=== PATIENT | female | born 1985 | race Caucasian/White ===

== ENCOUNTER → 2017-01-31 | Outpatient (REF) | payer OTHER ==
[~2017-01-31] MED LIST: ARTHROTEC; ATIV1TAB2; DEPA500T; FLEXERIL; IBUP800T; TRAM50TA2; VICO5TAB
[2017-01-31 14:01] LABS: BASO % 0.3 % (0.0-1.0); EOS # 0.2 K/mm3 (0.0-0.50); EOS % 1.7 % (0.0-3.0); LARGE UNSTAINED CELL # 0.1 K/mm3 (0.0-0.4); LARGE UNSTAINED CELL % 1.2 % (0.0-4.0); LYMPH % 22.3 % (24.0-44.0); MEAN CORPUSCULAR HEMOGLOBIN 32.3 pg (27.0-33.0); MEAN CORPUSCULAR HGB CONC 32.6 g/dl (32.0-36.5); MEAN CORPUSCULAR VOLUME 99.1 fl (80.0-96.0); MONO # 0.5 K/mm3 (0.0-0.8); MONO % 5.7 % (0.0-5.0); NEUTROPHILS # 6.2 K/mm3 (1.8-7.7); NEUTROPHILS % 68.7 % (36.0-66.0); PLATELET COUNT, AUTOMATED 243 k/mm3 (150-450); RED CELL DISTRIBUTION WIDTH 12.4 % (11.5-14.5)
[2017-01-31 14:05] LABS: ALBUMIN 4.1 GM/DL (3.2-5.2); ALBUMIN/GLOBULIN RATIO 1.64 (1.00-1.93); ALKALINE PHOSPHATASE 72 U/L (45-117); ALT/SGPT 35 U/L (12-78); AMYLASE 28 U/L (25-115); ANION GAP 7 MEQ/L (8-16); AST/SGOT 29 U/L (15-37); BILIRUBIN,TOTAL 0.3 MG/DL (0.2-1.0); BLOOD UREA NITROGEN 14 MG/DL (7-18); CALCIUM LEVEL 8.7 MG/DL (8.5-10.1); CARBON DIOXIDE LEVEL 29 MEQ/L (21-32); CHLORIDE LEVEL 104 MEQ/L (98-107); CREATININE FOR GFR 0.79 MG/DL (0.55-1.02); GLOMERULAR FILTRATION RATE > 60.0 (>60); GLUCOSE, FASTING 107 MG/DL (70-105); POTASSIUM SERUM 4.7 MEQ/L (3.5-5.1); SODIUM LEVEL 140 MEQ/L (136-145); TOTAL PROTEIN 6.6 GM/DL (6.4-8.2)
== END ==
LOC: M LAB REF 12:02
PROVIDERS: ATTEND Physician Assistant Medical
DX: M54.5 Low back pain (principal); R10.9 Unspecified abdominal pain

== ENCOUNTER → 2017-02-01 | Outpatient (CLI) | payer OTHER ==
[~2017-02-01] MED LIST changes: +GASTROGRAFIN SOLUTION 30ML (Q9963) As Ordered ONE; +ISOVUE-370 76% 100ML VIAL (Q9967) As Ordered ONE
--- NOTE | 2017-02-01 12:55 | REP ---
Clinical: Right lower quadrant pain. Technique: Axial contrast enhanced images from the lung bases to the pubic symphysis using oral and 100 ml Isovue 370 intravenous contrast material with coronal and sagittal re-formations. Findings: Lung bases clear. Visualized heart and pericardium normal. Liver, spleen, pancreas, bilateral adrenal glands and kidneys are normal. The patient is status post cholecystectomy. The enteric system is without obstruction or acute inflammatory process. A normal terminal ileum and appendix are identified in the right lower quadrant without appendicitis. Pelvis demonstrates normal sigmoid colon, bladder, and age-appropriate uterus/adnexa. No pelvic fluid or ascites. No adenopathy. No mass lesion. Vasculature is normal. Musculoskeletal structures are intact. Impression: Normal contrast enhanced CT of the abdomen and pelvis. Signed by Lawrence Griffith MD 02/01/2017 12:47 P
== END ==
LOC: M RAD 10:44
PROVIDERS: ATTEND Physician Assistant Medical
DX: M54.5 Low back pain (principal); R10.9 Unspecified abdominal pain
CPT/HCPCS: 74177; 87086; Q9963; Q9967

== ENCOUNTER → 2017-06-05 | Outpatient (REF) | payer OTHER ==
[~2017-06-05] MED LIST changes: -GASTROGRAFIN SOLUTION 30ML (Q9963) As Ordered ONE; -ISOVUE-370 76% 100ML VIAL (Q9967) As Ordered ONE
[2017-06-05 16:53] LABS: BASO % 0.2 % (0.0-1.0); EOS # 0.1 K/mm3 (0.0-0.50); EOS % 0.8 % (0.0-3.0); LARGE UNSTAINED CELL # 0.1 K/mm3 (0.0-0.4); LARGE UNSTAINED CELL % 0.9 % (0.0-4.0); LYMPH # 2.7 K/mm3 (1.5-4.5); LYMPH % 19.9 % (24.0-44.0); MEAN CORPUSCULAR HEMOGLOBIN 32.5 pg (27.0-33.0); MEAN CORPUSCULAR VOLUME 98.5 fl (80.0-96.0); MONO # 0.5 K/mm3 (0.0-0.8); MONO % 3.6 % (0.0-5.0); NEUTROPHILS # 9.8 K/mm3 (1.8-7.7); NEUTROPHILS % 74.5 % (36.0-66.0); PLATELET COUNT, AUTOMATED 236 k/mm3 (150-450); RED CELL DISTRIBUTION WIDTH 12.3 % (11.5-14.5); WHITE BLOOD COUNT 13.1 K/mm3 (4.0-10.0)
[2017-06-05 18:18] LABS: ERYTHROCYTE SEDIMENTATION RATE 4 mm/hr (0-20)
== END ==
LOC: M LABDRAW1 15:00
PROVIDERS: ATTEND Physician Assistant
DX: S53.402A Unspecified sprain of left elbow, initial encounter (principal); X58.XXXA Exposure to other specified factors, initial encounter; Y93.9 Activity, unspecified; Y92.9 Unspecified place or not applicable; Y99.8 Other external cause status

== ENCOUNTER → 2017-06-21 | Outpatient (REF) | payer OTHER ==
[2017-06-21 15:55] LABS: BASO % 0.3 % (0.0-1.0); EOS # 0.2 K/mm3 (0.0-0.50); EOS % 1.4 % (0.0-3.0); LARGE UNSTAINED CELL # 0.1 K/mm3 (0.0-0.4); LYMPH # 2.4 K/mm3 (1.5-4.5); LYMPH % 22.5 % (24.0-44.0); MEAN CORPUSCULAR HEMOGLOBIN 32.8 pg (27.0-33.0); MEAN CORPUSCULAR HGB CONC 33.9 g/dl (32.0-36.5); MEAN CORPUSCULAR VOLUME 96.7 fl (80.0-96.0); MONO # 0.4 K/mm3 (0.0-0.8); MONO % 3.9 % (0.0-5.0); NEUTROPHILS # 7.4 K/mm3 (1.8-7.7); NEUTROPHILS % 70.9 % (36.0-66.0); PLATELET COUNT, AUTOMATED 232 k/mm3 (150-450); RED CELL DISTRIBUTION WIDTH 12.3 % (11.5-14.5); WHITE BLOOD COUNT 10.4 K/mm3 (4.0-10.0)
== END ==
LOC: M LABDRAW1 15:12
PROVIDERS: ATTEND Physician Assistant
DX: S53.402A Unspecified sprain of left elbow, initial encounter (principal); X58.XXXA Exposure to other specified factors, initial encounter; Y92.89 Other specified places as the place of occurrence of the external cause; Y93.89 Activity, other specified; Y99.8 Other external cause status

== ENCOUNTER → 2017-08-03 | Outpatient (REF) | payer OTHER | LOC: M SFHCWAGY 14:57 | PROVIDERS: ATTEND Nurse Practitioner Women's Health | DX: Z01.419 Encounter for gynecological examination (general) (routine) without abnormal findings (principal); R10.2 Pelvic and perineal pain; Z11.3 Encounter for screening for infections with a predominantly sexual mode of transmission; N94.10 Unspecified dyspareunia; Z11.51 Encounter for screening for human papillomavirus (HPV) ==

== ENCOUNTER → 2017-10-25 | Outpatient (REF) | payer OTHER ==
[2017-10-25 12:33] LABS: BASO % 0.3 % (0.0-1.0); EOS # 0.2 10^3/uL (0.0-0.50); IMMATURE GRANULOCYTE % 0.4 % (0-0); LYMPH # 2.6 10^3/uL (1.5-4.5); LYMPH % 23.1 % (24.0-44.0); MEAN CORPUSCULAR HEMOGLOBIN 31.8 pg (27.0-33.0); MEAN CORPUSCULAR HGB CONC 33.1 g/dl (32.0-36.5); MONO # 0.7 10^3/uL (0.0-0.8); MONO % 6.3 % (0.0-5.0); NEUTROPHILS # 7.7 10^3/uL (1.8-7.7); NEUTROPHILS % 67.9 % (36.0-66.0); PLATELET COUNT, AUTOMATED 272 10^3/uL (150-450); RED CELL DISTRIBUTION WIDTH 12.5 % (11.5-14.5); WHITE BLOOD COUNT 11.3 10^3/uL (4.0-10.0)
[2017-10-25 12:55] LABS: ANION GAP 7 MEQ/L (8-16); BLOOD UREA NITROGEN 10 MG/DL (7-18); CALCIUM LEVEL 8.7 MG/DL (8.5-10.1); CARBON DIOXIDE LEVEL 29 MEQ/L (21-32); CHLORIDE LEVEL 107 MEQ/L (98-107); CREATININE FOR GFR 0.75 MG/DL (0.55-1.02); GLOMERULAR FILTRATION RATE > 60.0 (>60); GLUCOSE, FASTING 98 MG/DL (70-105); POTASSIUM SERUM 4.7 MEQ/L (3.5-5.1); SODIUM LEVEL 143 MEQ/L (136-145)
== END ==
LOC: M SFHCPLAZ 09:43
PROVIDERS: ATTEND Family Medicine
DX: Z87.898 Personal history of other specified conditions (principal); Z13.29 Encounter for screening for other suspected endocrine disorder; R53.83 Other fatigue

== ENCOUNTER → 2017-12-13 | Outpatient (REF) | payer OTHER | LOC: M SFHCADAM 09:50 | DX: G89.29 Other chronic pain (principal); R94.6 Abnormal results of thyroid function studies; Z86.718 Personal history of other venous thrombosis and embolism ==

== ENCOUNTER → 2017-12-14 | Outpatient (REF) | payer OTHER ==
[2017-12-14 13:23] LABS: HEMATOCRIT 45.1 % (36.0-47.0); HEMOGLOBIN 14.8 g/dl (12.0-16.0); MEAN CORPUSCULAR HEMOGLOBIN 31.6 pg (27.0-33.0); MEAN CORPUSCULAR HGB CONC 32.8 g/dl (32.0-36.5); MEAN CORPUSCULAR VOLUME 96.4 fl (80.0-96.0); PLATELET COUNT, AUTOMATED 293 10^3/uL (150-450); RED BLOOD COUNT 4.68 10^6/uL (4.00-5.40); RED CELL DISTRIBUTION WIDTH 12.3 % (11.5-14.5); WHITE BLOOD COUNT 13.1 10^3/uL (4.0-10.0)
[2017-12-14 13:50] LABS: ERYTHROCYTE SEDIMENTATION RATE 4 mm/hr (0-20)
[2017-12-14 13:52] LABS: ALBUMIN 4.1 GM/DL (3.2-5.2); ALBUMIN/GLOBULIN RATIO 1.37 (1.00-1.93); ALKALINE PHOSPHATASE 70 U/L (45-117); ALT/SGPT 17 U/L (12-78); ANION GAP 8 MEQ/L (8-16); AST/SGOT 15 U/L (7-37); BILIRUBIN,TOTAL 0.3 MG/DL (0.2-1.0); BLOOD UREA NITROGEN 9 MG/DL (7-18); C REACTIVE PROTEIN QUANTITATIV < 0.30 MG/DL (0.00-0.30); CALCIUM LEVEL 9.1 MG/DL (8.5-10.1); CARBON DIOXIDE LEVEL 28 MEQ/L (21-32); CHLORIDE LEVEL 105 MEQ/L (98-107); CHOLESTEROL LEVEL 203 MG/DL (<200); CREATININE FOR GFR 0.63 MG/DL (0.55-1.30); FREE T4 1.27 NG/DL (0.76-1.46); GLOMERULAR FILTRATION RATE > 60.0 (>60); GLUCOSE, FASTING 88 MG/DL (70-100); HDL CHOLESTEROL 55 MG/DL (>40); LDL CHOLESTEROL 126.2 MG/DL (<100); NON-HDL-C 148 MG/DL; POTASSIUM SERUM 4.5 MEQ/L (3.5-5.1); RHEUMATOID FACTOR QUANT < 10.0 IU/ML (0-15.0); SODIUM LEVEL 141 MEQ/L (136-145); THYROID STIMULATING HORMONE 0.855 uIU/ML (0.358-3.740); TOTAL PROTEIN 7.1 GM/DL (6.4-8.2); TRIGLYCERIDES LEVEL 109 MG/DL (<150)
[2017-12-16 00:06] LABS: ANA (HEP2) Negative (.); CARDIOLIPIN IGA ANTIBODY <9 APL U/mL (0-11); CARDIOLIPIN IGG ANTIBODY <9 GPL U/mL (0-14); CARDIOLIPIN IGM ANTIBODY 15 MPL U/mL (0-12)
== END ==
LOC: M SFHCADAM 11:29
DX: G89.29 Other chronic pain (principal); R94.6 Abnormal results of thyroid function studies; Z86.718 Personal history of other venous thrombosis and embolism

== ENCOUNTER → 2018-01-29 | Outpatient (CLI) | payer OTHER | LOC: M ADAMS 12:59 | DX: M25.562 Pain in left knee (principal) | CPT/HCPCS: 73564 ==

== ENCOUNTER → 2018-02-09 | Outpatient (REF) | payer OTHER | LOC: M LAB REF 09:59 | DX: J02.9 Acute pharyngitis, unspecified (principal) ==

== ENCOUNTER → 2018-02-23 | Outpatient (CLI) | payer OTHER | LOC: M CARPUL 10:25 | DX: R07.89 Other chest pain (principal) | CPT/HCPCS: 93306 ==

== ENCOUNTER → 2018-04-24 | Outpatient (REF) | payer OTHER | LOC: M LAB REF 12:32 | DX: N30.01 Acute cystitis with hematuria (principal) ==

== ENCOUNTER → 2018-05-17 | Outpatient (CLI) | payer OTHER ==
[2018-05-17 15:17] LABS: BASO % 0.4 % (0.0-1.0); EOS # 0.1 10^3/uL (0.0-0.50); HEMATOCRIT 44.9 % (36.0-47.0); HEMOGLOBIN 14.5 g/dl (12.0-15.5); IMMATURE GRANULOCYTE % 0.5 % (0-3.0); LYMPH # 2.9 10^3/uL (1.5-4.5); LYMPH % 25.1 % (24.0-44.0); MEAN CORPUSCULAR HEMOGLOBIN 31.7 pg (27.0-33.0); MEAN CORPUSCULAR HGB CONC 32.3 g/dl (32.0-36.5); MONO # 0.6 10^3/uL (0.0-0.8); MONO % 4.9 % (0.0-5.0); NEUTROPHILS # 7.8 10^3/uL (1.8-7.7); NEUTROPHILS % 68.1 % (36.0-66.0); PLATELET COUNT, AUTOMATED 279 10^3/uL (150-450); RED BLOOD COUNT 4.58 10^6/uL (4.00-5.40); WHITE BLOOD COUNT 11.4 10^3/uL (4.0-10.0)
[2018-05-17 15:31] LABS: C REACTIVE PROTEIN QUANTITATIV < 0.30 MG/DL (0.00-0.30)
[2018-05-17 15:57] LABS: ERYTHROCYTE SEDIMENTATION RATE 25 mm/hr (0-20)
== END ==
LOC: M ADAMS 11:41
DX: Z12.4 Encounter for screening for malignant neoplasm of cervix (principal); R68.84 Jaw pain
CPT/HCPCS: 86140

== ENCOUNTER → 2018-10-15 | Outpatient (REF) | payer OTHER ==
[2018-10-15 18:07] LABS: BASO # 0.1 10^3/uL (0.0-0.2); BASO % 0.3 % (0.0-1.0); EOS # 0.2 10^3/uL (0.0-0.50); EOS % 1.3 % (0.0-3.0); HEMATOCRIT 44.7 % (36.0-47.0); HEMOGLOBIN 14.6 g/dl (12.0-15.5); IMMATURE GRANULOCYTE % 0.5 % (0-3.0); LYMPH # 3.4 10^3/uL (1.5-4.5); LYMPH % 22.3 % (24.0-44.0); MEAN CORPUSCULAR HEMOGLOBIN 31.9 pg (27.0-33.0); MEAN CORPUSCULAR HGB CONC 32.7 g/dl (32.0-36.5); MEAN CORPUSCULAR VOLUME 97.8 fl (80.0-96.0); MONO # 0.9 10^3/uL (0.0-0.8); MONO % 5.7 % (0.0-5.0); NEUTROPHILS # 10.6 10^3/uL (1.8-7.7); NEUTROPHILS % 69.9 % (36.0-66.0); PLATELET COUNT, AUTOMATED 258 10^3/uL (150-450); RED BLOOD COUNT 4.57 10^6/uL (4.00-5.40); RED CELL DISTRIBUTION WIDTH 12.9 % (11.5-14.5); WHITE BLOOD COUNT 15.2 10^3/uL (4.0-10.0)
[2018-10-15 18:13] LABS: CONTROL LINE MONO RF C INT CTR LINE PRESENT; MONO REFLEX EBV COMP NEGATIVE (NEGATIVE)
[2018-10-15 18:16] LABS: ANION GAP 6 MEQ/L (8-16); BLOOD UREA NITROGEN 6 MG/DL (7-18); CALCIUM LEVEL 8.6 MG/DL (8.5-10.1); CARBON DIOXIDE LEVEL 28 MEQ/L (21-32); CHLORIDE LEVEL 108 MEQ/L (98-107); CREATININE FOR GFR 0.74 MG/DL (0.55-1.30); FREE T4 1.32 NG/DL (0.76-1.46); GLOMERULAR FILTRATION RATE > 60.0 (>60); GLUCOSE, FASTING 83 MG/DL (70-100); POTASSIUM SERUM 4.2 MEQ/L (3.5-5.1); SODIUM LEVEL 142 MEQ/L (136-145); THYROID STIMULATING HORMONE 0.838 uIU/ML (0.358-3.740)
[2018-10-18 00:06] LABS: EBV VIRAL CAPSID AG IgM <36.0 U/mL (0.0-35.9)
[2018-10-18 00:07] LABS: EBV VIRAL CAPSID AG IgM <36.0 U/mL (0.0-35.9)
== END ==
LOC: M LABDRWAD 16:41
DX: R53.83 Other fatigue (principal)
CPT/HCPCS: 84443

== ENCOUNTER → 2019-08-03 | Outpatient (REF) | payer OTHER ==
[2019-08-03 19:27] LABS: BASO # 0.1 10^3/uL (0.0-0.2); BASO % 0.3 % (0.0-1.0); EOS # 0.1 10^3/uL (0.0-0.5); EOS % 0.5 % (0.0-3.0); HEMATOCRIT 45.3 % (36.0-47.0); LYMPH # 2.6 10^3/uL (1.5-5.0); LYMPH % 17.5 % (24.0-44.0); MEAN CORPUSCULAR HEMOGLOBIN 32.3 pg (27.0-33.0); MEAN CORPUSCULAR HGB CONC 33.1 g/dl (32.0-36.5); MEAN CORPUSCULAR VOLUME 97.4 fl (80.0-96.0); MONO # 0.8 10^3/uL (0.0-0.8); MONO % 5.4 % (0.0-5.0); NEUTROPHILS # 11.3 10^3/uL (1.5-8.5); NEUTROPHILS % 75.9 % (36.0-66.0); PLATELET COUNT, AUTOMATED 291 10^3/uL (150-450); RED BLOOD COUNT 4.65 10^6/uL (4.00-5.40); WHITE BLOOD COUNT 14.9 10^3/uL (4.0-10.0)
[2019-08-03 19:56] LABS: ERYTHROCYTE SEDIMENTATION RATE 3 mm/hr (0-20)
== END ==
LOC: M LABDRWAD 12:18
PROVIDERS: ATTEND Physician Assistant
DX: L30.9 Dermatitis, unspecified (principal); R53.83 Other fatigue

== ENCOUNTER 2019-09-05 19:21 | Emergency (ER) | payer OTHER ==
[~2019-09-05] VITALS: Ht 160 cm; Wt 84.1 kg
[2019-09-05 19:36] VITALS: BP 161/76
[2019-09-05] MEDS ORDERED: CONC36TA4 PO (19:36)
[2019-09-05] MEDS ORDERED: LAMO200T2 PO (19:36)
[2019-09-05] MEDS ORDERED: PREG100CA PO (19:36)
[2019-09-05] MEDS ORDERED: TRAZ150T90 PO (19:38)
[2019-09-05] MEDS ORDERED: METH54TA5 PO (19:38)
[2019-09-05] MEDS ORDERED: ALPR1TAB3 PO (19:38)
[2019-09-05] MEDS ORDERED: NS 1,000 ML IV ONE (20:15)
[2019-09-05 20:42] LABS: BASO # 0.1 10^3/uL (0.0-0.2); BASO % 0.5 % (0.0-1.0); EOS # 0.2 10^3/uL (0.0-0.5); EOS % 1.7 % (0.0-3.0); HEMATOCRIT 42.5 % (36.0-47.0); HEMOGLOBIN 13.9 g/dl (12.0-15.5); LYMPH # 3.6 10^3/uL (1.5-5.0); LYMPH % 31.1 % (24.0-44.0); MEAN CORPUSCULAR HEMOGLOBIN 32.4 pg (27.0-33.0); MEAN CORPUSCULAR HGB CONC 32.7 g/dl (32.0-36.5); MEAN CORPUSCULAR VOLUME 99.1 fl (80.0-96.0); MONO # 0.9 10^3/uL (0.0-0.8); MONO % 7.6 % (0.0-5.0); NEUTROPHILS # 6.7 10^3/uL (1.5-8.5); NEUTROPHILS % 58.7 % (36.0-66.0); PLATELET COUNT, AUTOMATED 277 10^3/uL (150-450); RED BLOOD COUNT 4.29 10^6/uL (4.00-5.40); WHITE BLOOD COUNT 11.5 10^3/uL (4.0-10.0)
[2019-09-05 21:14] LABS: ALBUMIN 3.6 GM/DL (3.2-5.2); ALT/SGPT 29 U/L (12-78); BILIRUBIN,DIRECT 0.1 MG/DL (0.0-0.2); BILIRUBIN,TOTAL 0.3 MG/DL (0.2-1.0); BLOOD UREA NITROGEN 10 MG/DL (7-18); CALCIUM LEVEL 8.4 MG/DL (8.5-10.1); CARBON DIOXIDE LEVEL 29 MEQ/L (21-32); CHLORIDE LEVEL 106 MEQ/L (98-107); CK-MB VALUE MASS 1.2 NG/ML (<3.6); CPK CREATINE PHOSPHOKINASE 176 U/L (26-192); CREATININE FOR GFR 0.81 MG/DL (0.55-1.30); GLOMERULAR FILTRATION RATE > 60.0 (>60); GLUCOSE, FASTING 80 MG/DL (70-100); LIPASE 71 U/L (73-393); MB/CK RELATIVE INDEX 0.68 (< OR =4); POTASSIUM SERUM 3.8 MEQ/L (3.5-5.1); SODIUM LEVEL 140 MEQ/L (136-145); TOTAL PROTEIN 6.4 GM/DL (6.4-8.2); TROPONIN I < 0.02 NG/ML (< 0.10)
--- NOTE | 2019-09-05 21:47 | ECGEPIP ---
[facility] - ED Test Date: 2019-09-05 Pat Name: EMMA ROOT Department: Room: - Gender: Female Collection Supervisor: SB : [id number] Requested By: URIEL Singh PA-C Order Number: [id number] Reading MD: London Zhang Measurements Intervals [place] Rate: 86 P: 66 OH: 172 QRS: 59 QRSD: 104 T: 42 QT: 365 QTc: 438 Interpretive Statements SINUS RHYTHM SIMILAR TO 10/23/14 Electronically Signed on 09-05-2019 21:46:49 EDT by London Zhang
== END 2019-09-05 21:05 | disposition left against medical advice (07) ==
LOC: M ED 19:21
DX: R10.12 Left upper quadrant pain (principal); V40.5XXA Car driver injured in collision with pedestrian or animal in traffic accident, initial encounter; Y92.9 Unspecified place or not applicable; Y93.9 Activity, unspecified; Y99.9 Unspecified external cause status; R42 Dizziness and giddiness; M54.2 Cervicalgia; R51 Headache; R07.89 Other chest pain; D68.2 Hereditary deficiency of other clotting factors; F41.9 Anxiety disorder, unspecified; F32.9 Major depressive disorder, single episode, unspecified; F43.10 Post-traumatic stress disorder, unspecified; F90.9 Attention-deficit hyperactivity disorder, unspecified type; F17.200 Nicotine dependence, unspecified, uncomplicated; F12.10 Cannabis abuse, uncomplicated; Z53.21 Procedure and treatment not carried out due to patient leaving prior to being seen by health care provider; Z79.899 Other long term (current) drug therapy; J30.2 Other seasonal allergic rhinitis; Z88.2 Allergy status to sulfonamides; Z91.030 Bee allergy status

== ENCOUNTER → 2019-12-10 | Outpatient (REF) | payer OTHER ==
[~2019-12-10] MED LIST changes: +ALPR1TAB3 PO; +CONC36TA4 PO; +LAMO200T3 PO; +METH54TA5 PO; +PREG100CA PO; +TRAZ150T90 PO
[2019-12-10 21:09] LABS: APPEARANCE, URINE MANUAL CLEAR (CLEAR); COLOR, URINE MANUAL LT YELLOW (YELLOW)
[2019-12-10 21:10] LABS: BILIRUBIN, URINE MANUAL NEGATIVE (NEGATIVE); BLOOD URINE MANUAL NEGATIVE (NEGATIVE); GLUCOSE, URINE (UA) MANUAL NEGATIVE (NEGATIVE); KETONE, URINE MANUAL NEGATIVE (NEGATIVE); LEUKOCYTE ESTERASE, URINE MAN NEGATIVE (NEGATIVE); NITRITE, URINE MANUAL NEGATIVE (NEGATIVE); PROTEIN, URINE MANUAL NEGATIVE (NEGATIVE); UROBILINOGEN, URINE MANUAL NORMAL (NORMAL)
== END ==
LOC: M SFHCADAM 15:58
PROVIDERS: ATTEND Family Medicine
DX: R30.0 Dysuria (principal)

== ENCOUNTER → 2020-03-20 | Outpatient (REF) | payer OTHER ==
[~2020-03-20] MED LIST changes: +CYCL5TAB PO
[2020-03-20 13:51] LABS: APPEARANCE, URINE CLEAR (CLEAR); BACTERIA, URINE AUTO NEGATIVE (NEGATIVE); BILIRUBIN, URINE AUTO NEGATIVE (NEGATIVE); BLOOD, URINE BLOOD NEGATIVE (NEGATIVE); COLOR, URINE STRAW (YELLOW); GLUCOSE, URINE (UA) AUTO NEGATIVE (NEGATIVE); KETONE, URINE AUTO NEGATIVE (NEGATIVE); LEUKOCYTE ESTERASE, URINE AUTO NEGATIVE (NEGATIVE); NITRITE, URINE AUTO NEGATIVE (NEGATIVE); PROTEIN, URINE AUTO NEGATIVE (NEGATIVE); RBC, URINE AUTO 0 /HPF (0-3); SPECIFIC GRAVITY URINE AUTO 1.006 (1.002-1.035); SQUAMOUS EPITHELIAL CELL UR AU 2 /HPF (0-6); UROBILINOGEN, URINE AUTO 0.2 mg/dL (0.0-2.0); WBC, URINE AUTO 0 /HPF (0-3)
== END ==
LOC: M SFHCADAM 10:27
PROVIDERS: ATTEND Family Medicine
DX: R30.0 Dysuria (principal)

== ENCOUNTER → 2020-04-04 | Outpatient (CLI) | payer OTHER | LOC: M LABSMTC 10:50 | PROVIDERS: ATTEND Orthopaedic Surgery Hand Surgery ==

== ENCOUNTER → 2020-08-13 | Outpatient (CLI) | payer OTHER ==
--- NOTE | 2020-08-18 10:01 | REPPI ---
LEFT TIB-FIB SERIES: 4-VIEWS HISTORY: Pain in the left sanchez. FINDINGS: Four views of the left tibia and fibula demonstrate normal bones, joints, and soft tissues. No fracture or subluxation is seen. IMPRESSION: Negative radiographs of the left tibia and fibula. MTDD
== END ==
LOC: M PLAIMG 15:55
PROVIDERS: ATTEND Physician Assistant
DX: M79.662 Pain in left lower leg (principal)

== ENCOUNTER → 2020-09-23 | Outpatient (REF) | payer OTHER ==
[2020-09-23 17:15] LABS: HEMATOCRIT 47.3 % (36.0-47.0); HEMOGLOBIN 14.7 g/dl (12.0-15.5); MEAN CORPUSCULAR HEMOGLOBIN 31.1 pg (27.0-33.0); MEAN CORPUSCULAR HGB CONC 31.1 g/dl (32.0-36.5); MEAN CORPUSCULAR VOLUME 100.2 fl (80.0-96.0); PLATELET COUNT, AUTOMATED 287 10^3/uL (150-450); RED BLOOD COUNT 4.72 10^6/uL (4.00-5.40); WHITE BLOOD COUNT 19.8 10^3/uL (4.0-10.0)
[2020-09-23 17:17] LABS: ALBUMIN 4.2 GM/DL (3.2-5.2); ALT/SGPT 20 U/L (12-78); BILIRUBIN,TOTAL 0.3 MG/DL (0.2-1.0); BLOOD UREA NITROGEN 13 MG/DL (7-18); CALCIUM LEVEL 9.2 MG/DL (8.5-10.1); CARBON DIOXIDE LEVEL 27 MEQ/L (21-32); CHLORIDE LEVEL 109 MEQ/L (98-107); CREATININE FOR GFR 0.85 MG/DL (0.55-1.30); FREE T4 1.27 NG/DL (0.76-1.46); GLOMERULAR FILTRATION RATE > 60.0 (>60); GLUCOSE, FASTING 99 MG/DL (70-100); POTASSIUM SERUM 4.6 MEQ/L (3.5-5.1); SODIUM LEVEL 141 MEQ/L (136-145); THYROID STIMULATING HORMONE 0.374 uIU/ML (0.358-3.740); TOTAL PROTEIN 7.6 GM/DL (6.4-8.2)
== END ==
LOC: M SFHCADAM 11:32
PROVIDERS: ATTEND Family Medicine
DX: M79.7 Fibromyalgia (principal); R76.8 Other specified abnormal immunological findings in serum; F41.9 Anxiety disorder, unspecified; Z86.718 Personal history of other venous thrombosis and embolism

== ENCOUNTER → 2020-09-24 | Outpatient (REF) | payer OTHER ==
[2020-09-24 16:40] LABS: BASO # 0.1 10^3/uL (0.0-0.2); BASO % 0.4 % (0.0-1.0); EOS # 0.2 10^3/uL (0.0-0.5); HEMATOCRIT 45.4 % (36.0-47.0); HEMOGLOBIN 14.8 g/dl (12.0-15.5); LYMPH # 5.1 10^3/uL (1.5-5.0); LYMPH % 25.7 % (24.0-44.0); MEAN CORPUSCULAR HEMOGLOBIN 32.1 pg (27.0-33.0); MEAN CORPUSCULAR HGB CONC 32.6 g/dl (32.0-36.5); MEAN CORPUSCULAR VOLUME 98.5 fl (80.0-96.0); MONO % 5.2 % (0.0-5.0); NEUTROPHILS # 13.4 10^3/uL (1.5-8.5); NEUTROPHILS % 67.3 % (36.0-66.0); PLATELET COUNT, AUTOMATED 282 10^3/uL (150-450); RED BLOOD COUNT 4.61 10^6/uL (4.00-5.40)
[2020-09-24 16:45] LABS: WHITE BLOOD COUNT 19.9 10^3/uL (4.0-10.0)
== END ==
LOC: M SFHCADAM 13:35
PROVIDERS: ATTEND Family Medicine
DX: D72.829 Elevated white blood cell count, unspecified (principal)

== ENCOUNTER → 2020-10-16 | Outpatient (REF) | payer OTHER | LOC: M SFHCWAGY 12:56 | PROVIDERS: ATTEND Nurse Practitioner Women's Health | DX: Z12.4 Encounter for screening for malignant neoplasm of cervix (principal); Z01.419 Encounter for gynecological examination (general) (routine) without abnormal findings ==

== ENCOUNTER 2021-03-15 22:01 | Emergency (ER) | payer OTHER ==
[~2021-03-15] VITALS: Ht 160 cm; Wt 97.6 kg
[~2021-03-15 22:01] MED LIST changes: +DULO1CAP4 PO
[2021-03-15 22:02] VITALS: BP 130/89
== END 2021-03-16 01:54 | disposition left against medical advice (07) ==
LOC: M ED 22:01
DX: Z53.21 Procedure and treatment not carried out due to patient leaving prior to being seen by health care provider (principal)

== ENCOUNTER → 2021-03-19 | Outpatient (CLI) | payer OTHER ==
--- NOTE | 2021-03-21 07:35 | REP ---
INDICATION: R10.2 PELVIC AND PERINEAL PAIN COMPARISON: None. TECHNIQUE: Transabdominal pelvic ultrasound followed by transvaginal examination for better evaluation of the endometrium and adnexa with color Doppler evaluation of the ovaries. FINDINGS: Bladder is unremarkable and measures 6.9 x 5.1 x 5.8 cm. Heterogeneous anteverted uterus measures 8.3 x 5.6 x 4.6 cm. The endometrial complex measures 10 mm thickness. Calcification with shadowing along the anterior margin of the mid uterus. Bilateral ovaries are normal in appearance and vascularity without evidence for torsion. Right ovary measures 2.3 x 2.3 x 2.9 cm with 1.7 x 2.1 x 1.7 cm dominant follicle; R I = 0.63. Left ovary measures 2.1 x 1.7 x 1.7 cm; R I = 0.53. No pelvic fluid or adnexal mass lesion IMPRESSION: Anteverted uterus. Dominant follicle in the right ovary. <Electronically signed by Lawrence Griffith > 03/21/21 0731
== END ==
LOC: M WHC 12:59
PROVIDERS: ATTEND Obstetrics & Gynecology
DX: R10.2 Pelvic and perineal pain (principal)

== ENCOUNTER → 2021-03-24 | Outpatient (CLI) | payer OTHER | LOC: M LABSMTC 11:06 | PROVIDERS: ATTEND Anesthesiology | DX: Z01.812 Encounter for preprocedural laboratory examination (principal) ==

== ENCOUNTER → 2021-03-25 | Outpatient (REF) | payer OTHER ==
[~2021-03-25] MED LIST changes: +DOK1CAP7 PO; +IBUP80TA PO; +LOVE1INJ SC; +PERCOCET PO
[2021-03-25 18:05] LABS: BASO # 0.1 10^3/uL (0.0-0.2); BASO % 0.5 % (0.0-1.0); EOS # 0.4 10^3/uL (0.0-0.5); EOS % 3.6 % (0.0-3.0); HEMATOCRIT 43.9 % (36.0-47.0); LYMPH # 2.7 10^3/uL (1.5-5.0); LYMPH % 22.6 % (24.0-44.0); MEAN CORPUSCULAR HEMOGLOBIN 31.9 pg (27.0-33.0); MEAN CORPUSCULAR HGB CONC 31.9 g/dl (32.0-36.5); MONO # 0.9 10^3/uL (0.0-0.8); MONO % 7.7 % (2.0-8.0); NEUTROPHILS # 7.7 10^3/uL (1.5-8.5); NEUTROPHILS % 65.3 % (36.0-66.0); PLATELET COUNT, AUTOMATED 320 10^3/uL (150-450); RED BLOOD COUNT 4.39 10^6/uL (4.00-5.40); WHITE BLOOD COUNT 11.8 10^3/uL (4.0-10.0)
[2021-03-25 18:12] LABS: ALBUMIN 3.5 GM/DL (3.2-5.2); ALT/SGPT 20 U/L (12-78); BILIRUBIN,TOTAL 0.2 MG/DL (0.2-1.0); BLOOD UREA NITROGEN 12 MG/DL (7-18); CALCIUM LEVEL 8.7 MG/DL (8.5-10.1); CARBON DIOXIDE LEVEL 26 MEQ/L (21-32); CHLORIDE LEVEL 109 MEQ/L (98-107); GLOMERULAR FILTRATION RATE > 60.0 (>60); GLUCOSE, FASTING 73 MG/DL (70-100); POTASSIUM SERUM 4.6 MEQ/L (3.5-5.1); SODIUM LEVEL 141 MEQ/L (136-145); TOTAL PROTEIN 6.4 GM/DL (6.4-8.2)
== END ==
LOC: M SFHCADAM 12:30
PROVIDERS: ATTEND Family Medicine
DX: Z01.818 Encounter for other preprocedural examination (principal)

== ENCOUNTER 2021-03-29 08:54 | Day surgery (SDC) | payer OTHER ==
[~2021-03-29] VITALS: Ht 160 cm; Wt 101.1 kg
[~2021-03-29 08:54] MED LIST changes: -DOK1CAP7 PO; -IBUP80TA PO; -LOVE1INJ SC; +LR 1,000 ML IV ONE; -PERCOCET PO; +ceFAZolin SOD 2 GM in IV 1 EA IV ONE
[2021-03-29] MEDS ORDERED: BUPIVACAINE HCL 0.25% 30ML VIAL As Ordered ONE (09:32)
[2021-03-29] MEDS ORDERED: METHYLENE BLUE 0.5% (5MG/ML) 10 ML AMP (PROVAYBLUE) As Ordered ONE (09:33)
[2021-03-29 09:43] LABS: HEMOGLOBIN 14.3 g/dl (12.0-15.5); MEAN CORPUSCULAR HEMOGLOBIN 31.6 pg (27.0-33.0); MEAN CORPUSCULAR HGB CONC 31.8 g/dl (32.0-36.5); MEAN CORPUSCULAR VOLUME 99.6 fl (80.0-96.0); PLATELET COUNT, AUTOMATED 285 10^3/uL (150-450); RED BLOOD COUNT 4.52 10^6/uL (4.00-5.40); WHITE BLOOD COUNT 10.4 10^3/uL (4.0-10.0)
[2021-03-29 10:09] LABS: HCG, SERUM QUALITATIVE NEGATIVE (NEGATIVE)
[2021-03-29] MEDS ORDERED: fentaNYL 250 MCG/5 ML INJECTION (J3010) As Ordered ONE (10:18)
[2021-03-29] MEDS ORDERED: propofoL 200 MG/20 ML VIAL As Ordered ONE (10:18)
[2021-03-29] MEDS ORDERED: SUGAMMADEX SODIUM 500 MG/5 ML VIAL (BRIDION) As Ordered ONE (10:18)
[2021-03-29] MEDS ORDERED: dexameTHASONE 4 MG/ML 1ML VIAL (J1100 PER 1MG) As Ordered ONE (10:18)
[2021-03-29] MEDS ORDERED: METOCLOPRAMIDE INJ 10MG/2ML VIAL (J2765 PER 1) As Ordered ONE (10:18)
[2021-03-29] MEDS ORDERED: LIDOCAINE 2% 100MG/5ML SDV (FOR ANES.) As Ordered ONE (10:18)
[2021-03-29] MEDS ORDERED: MIDAZOLAM INJ 2MG/2ML VIAL (J2250 PER 1MG) As Ordered ONE (10:18)
[2021-03-29] MEDS ORDERED: ONDANSETRON 4MG/2ML VIAL As Ordered ONE (10:18)
[2021-03-29] MEDS ORDERED: ROCURONIUM BROMIDE 50 MG/5 ML VIAL As Ordered ONE (10:18)
[2021-03-29] MEDS ORDERED: HYDROmorphone HCL 2 MG/ML 1ML VIAL (J1170) As Ordered ONE (10:33)
[2021-03-29] MEDS ORDERED: KETOROLAC 60MG 2ML VIAL As Ordered ONE (10:42)
[2021-03-29] MEDS ORDERED: ALBUTEROL 6.7GM INHALER **FOR ANES. CART/OMNICELL ONLY As Ordered ONE (12:14)
[2021-03-29] MEDS ORDERED: ONDANSETRON 4MG/2ML VIAL IV PRN ×2 (12:30→12:35)
[2021-03-29] MEDS ORDERED: LR 1,000 ML IV SCH ×3 (12:30→12:35)
[2021-03-29] MEDS ORDERED: KETOROLAC 30 MG/ML 1ML VIAL IV SCH ×2 (12:30→18:00)
[2021-03-29] MEDS ORDERED: PROMETHAZINE INJ 25 MG/ML VIAL (J2550) IV PRN ×2 (12:30)
[2021-03-29] MEDS ORDERED: ALPRAZolam 0.5 MG TAB PO PRN ×2 (12:30)
[2021-03-29] MEDS ORDERED: PERCOCET 5MG/325MG TAB PO PRN ×4 (12:30)
[2021-03-29] MEDS: oxyCODONE 5MG TAB PO PRN ×2 (12:54→13:27)
[2021-03-29] MEDS: fentaNYL 100 MCG/2 ML INJECTION (J3010) IV PRN ×4 (12:55→13:27)
--- NOTE | 2021-03-29 12:55 | ROOPDOC ---
[facility] Report Of Operation Report of Operation DATE OF PROCEDURE: 03/29/2021 PREPROCEDURE DIAGNOSES: Abnormal uterine bleeding, chronic pelvic pain. POSTPROCEDURE DIAGNOSES: Same. PROCEDURE: Robotic-assisted total laparoscopic hysterectomy, bilateral salpingectomy, cystoscopy SURGEON: Jose Roberto Ybarra D.O. FACOG TESTS SUPERINTENDENT: Halle Saavedra ANESTHESIA: General endotracheal. ESTIMATED BLOOD LOSS: Approximately 200 mL. FLUIDS REPLACED: 1300 mL LR URINE OUTPUT: 100 mL COMPLICATIONS: None. FINDINGS: Normal-appearing ovaries bilaterally. Uterus was approximately 10 centimeters in greatest dimension. Dense adhesions between the uterine isthmus/cervix Cystoscopy: Bilateral ureteral orifice efflux, no bladder injury/suture material. PREOPERATIVE ANTIBIOTIC PROPHYLAXIS: Ancef 2 g IV 1. SPECIMEN(S): Uterus w/ cervix, bilateral fallopian tubes DESCRIPTION OF PROCEDURE: The patient was counseled, consented on the respective benefits, indications, alternatives of procedure. Informed consent was obtained. She was taken to the operating room with an IV running. She was placed on the operating table in dorsal supine position. Gen. anesthesia was administered and the airway was secured without any difficulty. She was placed in the low lithotomy position. . She was prepared and draped in the normal sterile fashion. A time out was performed per protocol. A Herrera catheter was placed under sterile conditions. A sterile speculum was placed resulting in good visualization of the cervix. A single-tooth tenaculum was used to grasp the anterior lip cervix. The cervix was sequentially dilated with Alen dilators. A V-Care uterine manipulator was placed without any difficulty. The single-tooth tenaculum was removed, as well as the speculum. A sterile glove switch was performed. Attention was turned to the abdomen. A 2mm incision was made in the umbilicus, and through this incision a Veress needle was inserted into the intraperitoneal cavity. Intraperitoneal placement was confirmed with ease of flow of normal saline, positive drop test, no return on aspiration, and an opening pressure of less than 10 mmHg upon initial insufflation. The abdomen was insufflated with 2 L of gas. The Veress needle was removed. A supraumbilical 8 mm incision was made. Through this incision, the robotic trochar/cannula was inserted into the intraperitoneal cavity under direct visualization. No incidental bleeding nor injury was noted. Patient was placed in 30 Trendelenburg. The right and left trocars/cannulas were placed on both the right and left side through 8 mm incisions, guided by laparoscopic visualization. No incidental bleeding nor injury was noted. The robot was docked in typical fashion. The instruments were inserted, guided by laparoscop ic visualization. My attention was turned to the robotic console. Using the vessel sealer device, the right and left fallopian tubes were amputated. The fallopian tubes were brought through the assist-port cannula without any difficulty. The right uter o-ovarian ligament and right round ligament were sequentially clamped, coagulated and transected with the vessel sealer device. The vesicouterine peritoneum /adhesions were carefully dissected with the vessel sealer device and blunt dissection to create the bladder flap, thus mobilizing the lower uterine segment and cervix off of the bladder. The right uterine vasculature was sequ entially clamped, coagulated and transected above the colpotomy cup. The left utero-ovarian ligament and left round ligament were sequentially clamped, coagulated and transected with the vessel sealer device. The remainder of the bladder flap was dissected using the vessel sealer device and blunt dissection. The left uterine vasculature was sequentially clamped, coagulated and transected above the colpotomy cup. The outline of the entire V- care colpotomy cup was able to be delineated. Excellent blanching of the uterus was noted. A circumferential colpotomy was performed using the da Navi monopolar mahin, following the contour of the cup. The amputated cervix and uterus were brought through the colpotomy into and out of the vagina, intact as one unit. The colpotomy was closed with the V-lock barbed suture in running fashion, thus creating the vaginal cuff. Excellent hemostasis was noted throughout the steps above. Nathan was placed over the vaginal cuff to ensure hemostasis. The instruments were removed from the abdomen and the robot was un-docked. The gas was released from the abdomen and the patient was taken out of Trendelenburg. I re-scrubbed, and attention was turned to the pelvis. The Herrera catheter was removed. The cystoscope was placed transurethrally into the bladder and normal saline was instilled. No bladder injury/suture material was noted. IV methylene blue had been administered by anesthesia and bilateral UO efflux was confirmed. The fluid was drained out of the bladder through the cystoscope device, then the cystoscope was removed. The vagina was copiously irrigated. A sterile digital vaginal exam revealed no significant bleeding and an intact vaginal cuff. A sterile glove switch was performed. The da Navi cannulas were removed. The skin incisions were closed with 4-0 Monocryl in subcuticular fashion. Sponge, needle and instrument counts were correct per protocol. The patient tolerated the entire procedure very well. She was transferred to the PACU in good and stable condition. DO CAROLIN Corona JONATHAN R. DO March 29, 2021 12:55
[2021-03-29] MEDS ORDERED: PERCOCET PO (13:08)
[2021-03-29] MEDS ORDERED: LOVE1INJ SC (13:08)
[2021-03-29] MEDS ORDERED: IBUP80TA PO (13:08)
[2021-03-29] MEDS ORDERED: DOK1CAP7 PO (13:08)
[2021-03-29 13:51] LABS: HEMATOCRIT 47.8 % (36.0-47.0); HEMOGLOBIN 15.1 g/dl (12.0-15.5); MEAN CORPUSCULAR HEMOGLOBIN 31.7 pg (27.0-33.0); MEAN CORPUSCULAR HGB CONC 31.6 g/dl (32.0-36.5); MEAN CORPUSCULAR VOLUME 100.2 fl (80.0-96.0); PLATELET COUNT, AUTOMATED 283 10^3/uL (150-450); RED BLOOD COUNT 4.77 10^6/uL (4.00-5.40); WHITE BLOOD COUNT 18.4 10^3/uL (4.0-10.0)
[2021-03-29 14:13] LABS: CREATININE FOR GFR 0.77 MG/DL (0.55-1.30); GLOMERULAR FILTRATION RATE > 60.0 (>60)
[2021-03-29 14:17] VITALS: BP 154/70
[2021-03-29 14:44] VITALS: BP 136/72
[2021-03-29 15:45] VITALS: BP 114/84
[2021-03-29 16:39] VITALS: BP 159/86
[2021-03-29 17:50] VITALS: BP 138/76
[2021-03-29] MEDS ORDERED: ENOXAPARIN 40MG/0.4ML SYRINGE (J1650 PER 10MG) SC SCH (18:00)
[2021-03-29] MEDS ORDERED: DULoxetine 20 MG CAP (CYMBALTA) PO SCH ×2 (21:00)
[2021-03-29] MEDS ORDERED: PREGABALIN 100 MG CAP (LYRICA) PO SCH (21:00)
[2021-03-29] MEDS ORDERED: CYCLOBENZAPRINE 5MG TABLET PO SCH ×2 (21:00)
[2021-03-29] MEDS ORDERED: DOCUSATE SODIUM 100MG CAPSULE PO SCH ×2 (21:00)
[2021-03-29] MEDS ORDERED: PREGABALIN 75 MG CAP(LYRICA) PO SCH (21:00)
[2021-03-29] MEDS ORDERED: lamoTRIgine 100MG TAB PO SCH (21:00)
[2021-03-30] MEDS ORDERED: BOOSTRIX/ADACEL VACCINE (DIPHTH/PERTUSS/ACELL/TETANUS) 0.5ML SYR IM ONE (09:00)
[2021-03-30] MEDS ORDERED: lamoTRIgine 100MG TAB PO SCH (09:00)
[2021-03-30] MEDS ORDERED: IBUPROFEN 800 MG TAB PO SCH ×2 (14:00→14:30)
== END 2021-03-29 19:35 | disposition home health service (06) ==
LOC: M SDC 08:54 → M PED 14:15 → M SDC 19:35
PROVIDERS: ATTEND Obstetrics & Gynecology
DX: N93.9 Abnormal uterine and vaginal bleeding, unspecified (principal); R10.2 Pelvic and perineal pain; N72 Inflammatory disease of cervix uteri; M79.7 Fibromyalgia; F31.9 Bipolar disorder, unspecified; F43.10 Post-traumatic stress disorder, unspecified; F90.9 Attention-deficit hyperactivity disorder, unspecified type; F32.9 Major depressive disorder, single episode, unspecified; F12.10 Cannabis abuse, uncomplicated; F17.218 Nicotine dependence, cigarettes, with other nicotine-induced disorders; Z88.2 Allergy status to sulfonamides; Z91.030 Bee allergy status
CPT/HCPCS: 36415; 58571; 82565; 84703; 85027; 86850; 86900; 86901; 88307; 96372; 96374; J0690; J1100; J1170; J1650; J1885; J2250; J2405; J2765; J3010; Q9968; S2900

== ENCOUNTER 2021-05-08 19:29 | Emergency (ER) | payer OTHER ==
[~2021-05-08] VITALS: Ht 160 cm; Wt 96.6 kg
[~2021-05-08 19:29] MED LIST changes: +DOK1CAP7 PO; +IBUP80TA PO; +LOVE1INJ SC; -LR 1,000 ML IV ONE; +PERCOCET PO; -ceFAZolin SOD 2 GM in IV 1 EA IV ONE
[2021-05-08] MEDS ORDERED: MORPHINE 4 MG/ML 1ML VIAL/SYRINGE (J2270) IV ONE ×2 (20:35→23:15)
[2021-05-08 21:01] LABS: BASO # 0.1 10^3/uL (0.0-0.2); BASO % 0.4 % (0.0-1.0); EOS # 0.1 10^3/uL (0.0-0.5); EOS % 0.7 % (0.0-3.0); HEMATOCRIT 44.7 % (36.0-47.0); HEMOGLOBIN 14.8 g/dl (12.0-15.5); LYMPH # 3.9 10^3/uL (1.5-5.0); LYMPH % 27.1 % (24.0-44.0); MEAN CORPUSCULAR HEMOGLOBIN 31.8 pg (27.0-33.0); MEAN CORPUSCULAR HGB CONC 33.1 g/dl (32.0-36.5); MEAN CORPUSCULAR VOLUME 96.1 fl (80.0-96.0); MONO # 0.8 10^3/uL (0.0-0.8); MONO % 5.4 % (2.0-8.0); NEUTROPHILS # 9.5 10^3/uL (1.5-8.5); NEUTROPHILS % 66.1 % (36.0-66.0); PLATELET COUNT, AUTOMATED 306 10^3/uL (150-450); RED BLOOD COUNT 4.65 10^6/uL (4.00-5.40); WHITE BLOOD COUNT 14.3 10^3/uL (4.0-10.0)
[2021-05-08 21:22] LABS: ALBUMIN 4.1 GM/DL (3.2-5.2); ALT/SGPT 19 U/L (12-78); BILIRUBIN,DIRECT < 0.1 MG/DL (0.0-0.2); BILIRUBIN,TOTAL 0.5 MG/DL (0.2-1.0); LIPASE 59 U/L (73-393); TOTAL PROTEIN 7.4 GM/DL (6.4-8.2)
[2021-05-08] MEDS ORDERED: ISOVUE-370 76% 100ML VIAL As Ordered ONE (21:48)
--- NOTE | 2021-05-08 22:52 | REPVR ---
PROCEDURE INFORMATION: Exam: CT Abdomen And Pelvis With Contrast Exam date and time: 05/08/2021 9:58 PM Age: 35 years old Clinical indication: Abdominal pain; Localized; Lower; Additional info: Lower abdominal pain with rebound tenderness, S/P hysterectomy TECHNIQUE: Imaging protocol: Computed tomography of the abdomen and pelvis with contrast. Radiation optimization: All CT scans at this facility use at least one of these dose optimization techniques: automated exposure control; mA and/or kV adjustment per patient size (includes targeted exams where dose is matched to clinical indication); or iterative reconstruction. Contrast material: ISOVUE 370; Contrast volume: 100 ml; Contrast route: INTRAVENOUS (IV); COMPARISON: CT ABD PELVIS WITH CONTRAST 02/01/2017 12:37 PM FINDINGS: Lungs: There is mild atelectasis in the medial segment of the right lower lobe and dependent portions of both lower lobes. The lungs were not fully imaged. Heart: No cardiomegaly or pericardial effusion. Liver: No liver lesion is seen. The contour of the liver is smooth. The liver is enlarged and in craniocaudal dimension and at the level of the right midclavicular line, the liver measures 16.6 cm. Gallbladder and bile ducts: There has been a cholecystectomy. There is no fluid collection in the gallbladder fossa. No dilation of the bile ducts is noted. No calcified stones are seen in the common bile duct. Pancreas: Normal. No dilation of the main pancreatic duct is noted. Spleen: Normal. No splenomegaly is noted. Adrenal glands: Normal. No adrenal mass is noted. Kidneys and ureters: The kidneys are normal in appearance. No renal lesion is noted. No stones are noted in the kidneys or ureters. There is no hydronephrosis or hydroureter. There are no wedge-shaped areas of low attenuation in the kidneys to suggest pyelonephritis. There is no renal abscess or perinephric fluid collection. Stomach and bowel: There are intraluminal foci density in the cecum, which may represent high density ingested material. There is no evidence for a bowel obstruction, diverticulosis, diverticulitis, colitis, perforated viscus, pneumatosis intestinalis, intussusception, or volvulus. There is a large amount of formed stool in the ascending colon and cecum. Appendix: Normal. There is no evidence for appendicitis. Intraperitoneal space: No free air. No ascites. No abscess. Retroperitoneal space: No fluid collection. No mass. Vasculature: The abdominal aorta is patent, normal in caliber, and there is no dissection. The renal arteries, celiac artery, superior mesenteric artery, inferior mesenteric artery, iliac arteries, and common femoral arteries are patent. Lymph nodes: No enlarged lymph nodes. Urinary bladder: The partially distended urinary bladder is unremarkable. No stones or masses are seen in the bladder. Reproductive: There has been a hysterectomy. The ovaries are not identified and may have been removed. No adnexal mass is noted. Bones/joints: There is no fracture or dislocation. No suspicious osteolytic or osteoblastic lesion. Soft tissues: There is a tiny fat containing midline ventral hernia located approximately 4 cm above the umbilicus. There is nonspecific edema in the subcutaneous tissues posteriorly along the midline of the lumbar spine. IMPRESSION: 1. No acute findings in the abdomen or pelvis. 2. Large amount of formed stool in the ascending colon and cecum. No bowel obstruction. 3. Hepatomegaly. 4. Tiny fat containing midline ventral hernia located approximately 4 cm above the umbilicus. Electronically signed by: Claude Flower On 05/08/2021 22:52:34 PM
[2021-05-08] MEDS ORDERED: MOM 30ML SUSPENSION UDC PO ONE (23:15)
[2021-05-08] MEDS ORDERED: BISACODYL 10 MG SUPP PR ONE (23:15)
[2021-05-08] MEDS ORDERED: PREG150C PO (23:31)
[2021-05-08] MEDS ORDERED: IBUP80TA PO (23:31)
[2021-05-08] MEDS ORDERED: LAMO200T54 PO (23:31)
[2021-05-08] MEDS ORDERED: CYCL-707 PO (23:31)
[2021-05-09 00:22] LABS: RSV AMPLIFICATION NEGATIVE (NEGATIVE)
--- NOTE | 2021-05-09 00:47 | REPVR ---
PROCEDURE INFORMATION: Exam: CT Abdomen And Pelvis Without Contrast Exam date and time: 05/09/2021 12:21 AM Age: 35 years old Clinical indication: Abnormal findings; Abnormal lab test; Blood in urinalysis; Additional info: Nephrolithiasis TECHNIQUE: Imaging protocol: Computed tomography of the abdomen and pelvis without contrast. Radiation optimization: All CT scans at this facility use at least one of these dose optimization techniques: automated exposure control; mA and/or kV adjustment per patient size (includes targeted exams where dose is matched to clinical indication); or iterative reconstruction. COMPARISON: CT ABD PELVIS WITH CONTRAST 05/08/2021 9:57 PM FINDINGS: Lungs: There is mild atelectasis in the medial segment of the right lower lobe and dependent portions of both lower lobes. The lungs were not fully imaged. Heart: No cardiomegaly or pericardial effusion. Diaphragm: Intact. Liver: No liver lesion is seen. The contour of the liver is smooth. The liver is enlarged and in craniocaudal dimension and at the level of the right midclavicular line, the liver measures 16.6 cm. Gallbladder and bile ducts: There has been a cholecystectomy. There is no fluid collection in the gallbladder fossa. No dilation of the bile ducts is noted. No calcified stones are seen in the common bile duct. Pancreas: Unremarkable. No dilation of the main pancreatic duct is noted. Spleen: Unremarkable. No splenomegaly is noted. Adrenal glands: Normal. No adrenal mass is noted. Kidneys and ureters: There is excreted contrast material in the renal collecting systems and left ureter, limiting the evaluation for the detection of calculi in the genitourinary system. However, no calculi are noted in the renal collecting systems or ureters in the CT abdomen and pelvis on 05/08/2021 9:57 PM. No filling defects are noted in the renal collecting systems or opacified portion of the left ureter. There is no hydronephrosis or hydroureter. Stomach and bowel: There are small intraluminal foci of high density in the cecum and proximal ascending colon, which may represent high density ingested material. There is no evidence for a bowel obstruction, diverticulosis, diverticulitis, colitis, perforated viscus, pneumatosis intestinalis, intussusception, or volvulus. There is a persistent large amount of formed stool in the cecum and ascending colon that is similar in appearance compared to the prior CT abdomen and pelvis on 05/08/2021 9:57 PM. Appendix: Normal. There is no evidence for appendicitis. Intraperitoneal space: No free air. No ascites. No abscess. Retroperitoneal space: No fluid collection. No mass. Vasculature: The abdominal aorta is normal in caliber. Lymph nodes: No enlarged lymph nodes. Urinary bladder: There is excreted contrast material distending the urinary bladder. There is no bladder wall thickening or filling defects in the urinary bladder. No inflammatory fat stranding is noted around the bladder. Reproductive: There has been a hysterectomy. The ovaries are not identified and may have been removed. No adnexal mass is noted. Bones/joints: The imaged bony structures are intact. There is no suspicious osteolytic or osteoblastic lesion. Soft tissues: There is a tiny fat containing midline ventral hernia located approximately 4 cm above the umbilicus. There is nonspecific edema in the subcutaneous tissues posteriorly along the midline of the lumbar spine and in the left superior gluteal region. IMPRESSION: 1. No acute findings in the abdomen or pelvis. 2. Excreted contrast material in the renal collecting systems and left ureter limit the detection of calculi in the genitourinary system. However, no calculi are seen in the renal collecting systems, ureters, or urinary bladder in the CT abdomen and pelvis on 05/08/2021 9:57 PM. 3. Persistent large amount of formed stool in the cecum and ascending colon that is similar in appearance compared to the prior CT abdomen and pelvis on 05/08/2021 9:57 PM. No bowel obstruction. 4. Hepatomegaly. 5. Tiny fat containing midline ventral hernia located approximately 4 cm above the umbilicus. Electronically signed by: Claude Flower On 05/09/2021 00:46:26 AM
--- NOTE | 2021-05-09 00:47 | REPVR ---
PROCEDURE INFORMATION: Exam: XR Chest Exam date and time: 05/09/2021 12:11 AM Age: 35 years old Clinical indication: Rule out pneumonia, infection TECHNIQUE: Imaging protocol: XR of the chest. Views: 1 view. COMPARISON: CR Chest, 2 view PA, Lat 09/30/2014 1:26 PM FINDINGS: Lungs: Unremarkable. No consolidation. No pulmonary edema. Pleural spaces: Unremarkable. No pleural effusion. No pneumothorax. Heart/Mediastinum: Unremarkable. No cardiomegaly. Bones/joints: Unremarkable. IMPRESSION: No acute findings. Electronically signed by: Claude Flower On 05/09/2021 00:46:40 AM
[2021-05-09] MEDS ORDERED: MIRA3350 PO (00:57)
[2021-05-09] MEDS ORDERED: IBUP-1022 PO (00:59)
[2021-05-09 01:56] VITALS: BP 136/70
== END 2021-05-09 02:02 | disposition home or self-care (01) ==
LOC: M ED 19:29
DX: K59.00 Constipation, unspecified (principal); R10.84 Generalized abdominal pain; R11.0 Nausea; Z90.710 Acquired absence of both cervix and uterus; R16.0 Hepatomegaly, not elsewhere classified; K43.9 Ventral hernia without obstruction or gangrene; M79.7 Fibromyalgia; F90.9 Attention-deficit hyperactivity disorder, unspecified type; F43.10 Post-traumatic stress disorder, unspecified; Z88.2 Allergy status to sulfonamides; Z91.030 Bee allergy status; Z79.899 Other long term (current) drug therapy; F17.200 Nicotine dependence, unspecified, uncomplicated
CPT/HCPCS: 71045; 74176; 74177; 80047; 80076; 81001; 83605; 83690; 85025; 87631; 93041; 96374; 96376; 99285; J2270; Q9967

== ENCOUNTER → 2021-08-17 | Outpatient (CLI) | payer BC ==
[~2021-08-17] MED LIST changes: +CYCL-707 PO; +DOK1CAP4 PO; -DOK1CAP7 PO; +IBUP-1022 PO; +LAMO200T54 PO; +MIRA3350 PO; +PREG150C PO
--- NOTE | 2021-08-17 14:57 | REP ---
INDICATION: LUMBAR PAIN DETERMINED BY [facility] COMPARISON: 10/24/2010 TECHNIQUE: AP, lateral, bilateral oblique, and coned-down views of the lumbar spine. FINDINGS: Alignment and lordosis maintained. Vertebral bodies are intact. No acute fracture/compression injury or subluxation. Disc spaces are relatively normal/age-appropriate. No obvious spondylolysis or spondylolisthesis. IMPRESSION: Normal Lumbosacral Spine series. <Electronically signed by Lawrence Griffith > 08/17/21 [id number]
== END ==
LOC: M ADAMS 14:30
PROVIDERS: ATTEND Family Medicine
DX: M54.50 Low back pain, unspecified (principal)

== ENCOUNTER → 2021-08-17 | Outpatient (REF) | payer BC ==
[2021-08-17 16:39] LABS: BASO # 0.1 10^3/uL (0.0-0.2); BASO % 0.5 % (0.0-1.0); EOS # 0.3 10^3/uL (0.0-0.5); EOS % 1.9 % (0.0-3.0); HEMATOCRIT 47.2 % (36.0-47.0); HEMOGLOBIN 15.2 g/dl (12.0-15.5); LYMPH # 4.3 10^3/uL (1.5-5.0); LYMPH % 31.9 % (24.0-44.0); MEAN CORPUSCULAR HEMOGLOBIN 30.9 pg (27.0-33.0); MEAN CORPUSCULAR HGB CONC 32.2 g/dl (32.0-36.5); MEAN CORPUSCULAR VOLUME 95.9 fl (80.0-96.0); MONO # 0.8 10^3/uL (0.0-0.8); MONO % 6.2 % (2.0-8.0); NEUTROPHILS # 7.9 10^3/uL (1.5-8.5); NEUTROPHILS % 59.1 % (36.0-66.0); PLATELET COUNT, AUTOMATED 299 10^3/uL (150-450); RED BLOOD COUNT 4.92 10^6/uL (4.00-5.40); WHITE BLOOD COUNT 13.4 10^3/uL (4.0-10.0)
[2021-08-17 17:20] LABS: ALBUMIN 4.1 GM/DL (3.2-5.2); ALT/SGPT 25 U/L (12-78); BILIRUBIN,TOTAL 0.3 MG/DL (0.2-1.0); BLOOD UREA NITROGEN 9 MG/DL (7-18); C REACTIVE PROTEIN QUANTITATIV 0.32 MG/DL (0.00-0.30); CALCIUM LEVEL 9.6 MG/DL (8.5-10.1); CARBON DIOXIDE LEVEL 27 MEQ/L (21-32); CHLORIDE LEVEL 108 MEQ/L (98-107); CREATININE FOR GFR 0.75 MG/DL (0.55-1.30); GLOMERULAR FILTRATION RATE > 60.0 (>60); GLUCOSE, FASTING 89 MG/DL (70-100); POTASSIUM SERUM 4.3 MEQ/L (3.5-5.1); RHEUMATOID FACTOR QUANT < 10.0 IU/ML (<15.0); SODIUM LEVEL 139 MEQ/L (136-145); TOTAL PROTEIN 7.5 GM/DL (6.4-8.2)
== END ==
LOC: M SFHCADAM 14:19
PROVIDERS: ATTEND Family Medicine
DX: D72.829 Elevated white blood cell count, unspecified (principal); M79.7 Fibromyalgia; R76.8 Other specified abnormal immunological findings in serum

== ENCOUNTER 2022-01-27 00:22 | Emergency (ER) | payer BC ==
[~2022-01-27] VITALS: Ht 160 cm; Wt 96.5 kg
[2022-01-27 00:25] VITALS: BP 164/97
== END 2022-01-27 01:29 | disposition left against medical advice (07) ==
LOC: M ED 00:22
DX: Z53.21 Procedure and treatment not carried out due to patient leaving prior to being seen by health care provider (principal)

== ENCOUNTER → 2022-05-17 | Outpatient (CLI) | payer BC | LOC: M WHC 12:52 | PROVIDERS: ATTEND Family Medicine | DX: R92.8 Other abnormal and inconclusive findings on diagnostic imaging of breast (principal) | CPT/HCPCS: 76642; 77066; G0279 ==

== ENCOUNTER → 2022-07-04 | Outpatient (REF) | payer BC ==
[2022-07-04 15:01] LABS: HEMATOCRIT 47.6 % (36.0-47.0); HEMOGLOBIN 15.1 g/dl (12.0-15.5); MEAN CORPUSCULAR HEMOGLOBIN 31.1 pg (27.0-33.0); MEAN CORPUSCULAR HGB CONC 31.7 g/dl (32.0-36.5); MEAN CORPUSCULAR VOLUME 98.1 fl (80.0-96.0); PLATELET COUNT, AUTOMATED 333 10^3/uL (150-450); RED BLOOD COUNT 4.85 10^6/uL (4.00-5.40); WHITE BLOOD COUNT 12.2 10^3/uL (4.0-10.0)
[2022-07-04 16:16] LABS: ALBUMIN 3.8 GM/DL (3.2-5.2); ALT/SGPT 21 U/L (12-78); BILIRUBIN,TOTAL 0.2 MG/DL (0.2-1.0); BLOOD UREA NITROGEN 15 MG/DL (7-18); CALCIUM LEVEL 9.4 MG/DL (8.5-10.1); CARBON DIOXIDE LEVEL 25 MEQ/L (21-32); CHLORIDE LEVEL 108 MEQ/L (98-107); CREATININE FOR GFR 0.74 MG/DL (0.55-1.30); GLOMERULAR FILTRATION RATE > 60.0 (>60); GLUCOSE, FASTING 97 MG/DL (70-100); POTASSIUM SERUM 4.5 MEQ/L (3.5-5.1); RHEUMATOID FACTOR QUANT < 10.0 IU/ML (<15.0); SODIUM LEVEL 138 MEQ/L (136-145); TOTAL PROTEIN 6.9 GM/DL (6.4-8.2)
== END ==
LOC: M SFHCADAM 11:32
PROVIDERS: ATTEND Physician Assistant
DX: R76.0 Raised antibody titer (principal); R76.8 Other specified abnormal immunological findings in serum; M99.03 Segmental and somatic dysfunction of lumbar region; M99.02 Segmental and somatic dysfunction of thoracic region

== ENCOUNTER → 2023-02-27 | Outpatient (CLI) | payer BC | LOC: M WHC 12:06 | PROVIDERS: ATTEND Surgery | DX: R92.8 Other abnormal and inconclusive findings on diagnostic imaging of breast (principal) ==

== ENCOUNTER → 2023-04-04 | Outpatient (REF) | payer BC ==
[~2023-04-04] MED LIST changes: +ALBU8.5H INH; +TRAM50TA2 PO; +VYVA50CA4 PO
== END ==
LOC: MERGE 14:30 → M SFHCADAM 14:30
PROVIDERS: ATTEND Family Medicine
DX: Z53.9 Procedure and treatment not carried out, unspecified reason (principal); M79.7 Fibromyalgia; G89.29 Other chronic pain; R94.6 Abnormal results of thyroid function studies; F43.10 Post-traumatic stress disorder, unspecified; D72.829 Elevated white blood cell count, unspecified; F43.23 Adjustment disorder with mixed anxiety and depressed mood; I10 Essential (primary) hypertension; F45.0 Somatization disorder; R26.89 Other abnormalities of gait and mobility

== ENCOUNTER → 2023-12-14 | Outpatient (REF) | payer BC ==
[~2023-12-14] MED LIST changes: -PREG150C PO; +PREG150C2 PO
[2023-12-14 14:25] LABS: HEMATOCRIT 47.4 % (36.0-47.0); HEMOGLOBIN 15.6 g/dl (12.0-15.5); MEAN CORPUSCULAR HEMOGLOBIN 32.5 pg (27.0-33.0); MEAN CORPUSCULAR HGB CONC 32.9 g/dl (32.0-36.5); MEAN CORPUSCULAR VOLUME 98.8 fl (80.0-96.0); PLATELET COUNT, AUTOMATED 309 10^3/uL (150-450)
[2023-12-14 14:48] LABS: HEMOGLOBIN A1c 4.8 % (4.0-6.0)
[2023-12-14 15:16] LABS: C REACTIVE PROTEIN QUANTITATIV < 0.40 MG/DL (<1.0)
[2023-12-14 15:17] LABS: FREE T4 1.42 NG/DL (0.89-1.76)
[2023-12-14 15:18] LABS: ALBUMIN 3.8 G/DL (3.2-5.2); ALKALINE PHOSPHATASE 78 U/L (46-116); ALT/SGPT 19 U/L (7.0-40); AST/SGOT 15 U/L (<34); BILIRUBIN,TOTAL 0.3 MG/DL (0.3-1.2); BLOOD UREA NITROGEN 12 MG/DL (9-23); CALCIUM LEVEL 8.9 MG/DL (8.5-10.1); CARBON DIOXIDE LEVEL 27 MMOL/L (20-31); CHLORIDE LEVEL 108 MMOL/L (98-107); CREATININE FOR GFR 0.71 MG/DL (0.55-1.30); GLOMERULAR FILTRATION RATE > 60.0 (>60); GLUCOSE, FASTING 67 MG/DL (60-100); MAGNESIUM LEVEL 1.9 MG/DL (1.8-2.4); POTASSIUM SERUM 4.7 MMOL/L (3.5-5.1); SODIUM LEVEL 141 MMOL/L (136-145); THYROID STIMULATING HORMONE 1.191 uIU/ML (0.55-4.78); TOTAL PROTEIN 6.9 G/DL (5.7-8.2)
== END ==
LOC: M SFHCADAM 11:20
PROVIDERS: ATTEND Family Medicine
DX: F43.23 Adjustment disorder with mixed anxiety and depressed mood (principal); R00.2 Palpitations; R94.6 Abnormal results of thyroid function studies; M79.7 Fibromyalgia; R76.8 Other specified abnormal immunological findings in serum; J01.90 Acute sinusitis, unspecified; R55 Syncope and collapse; Z53.20 Procedure and treatment not carried out because of patient's decision for unspecified reasons; R76.0 Raised antibody titer; F11.90 Opioid use, unspecified, uncomplicated

== ENCOUNTER 2024-03-11 19:36 | Emergency (ER) | payer BC ==
[~2024-03-11] VITALS: Ht 162.6 cm; Wt 90.0 kg
[2024-03-11 20:00] VITALS: TEMP 97.9
[2024-03-11 20:50] LABS: BASO # 0.1 10^3/uL (0.0-0.2); BASO % 0.4 % (0.0-1.0); EOS # 0.1 10^3/uL (0.0-0.5); EOS % 0.5 % (0.0-3.0); HEMATOCRIT 42.9 % (36.0-47.0); HEMOGLOBIN 14.5 g/dl (12.0-15.5); LYMPH # 2.9 10^3/uL (1.5-5.0); LYMPH % 22.2 % (24.0-44.0); MEAN CORPUSCULAR HEMOGLOBIN 32.4 pg (27.0-33.0); MEAN CORPUSCULAR HGB CONC 33.8 g/dl (32.0-36.5); MONO # 0.9 10^3/uL (0.0-0.8); MONO % 6.7 % (2.0-8.0); NEUTROPHILS % 69.8 % (36.0-66.0); PLATELET COUNT, AUTOMATED 264 10^3/uL (150-450); RED BLOOD COUNT 4.47 10^6/uL (4.00-5.40); WHITE BLOOD COUNT 12.9 10^3/uL (4.0-10.0)
[2024-03-11] MEDS: AUGMENTIN 875 MG TAB PO ONE (21:10)
[2024-03-11] MEDS: BOOSTRIX VACCINE (TETANUS/DIPHTH/ACEL. PERTUSSIS) 0.5ML SYR IM.IMMUN ONE (21:10)
[2024-03-11 21:14] LABS: ALBUMIN 3.2 G/DL (3.2-5.2); ALKALINE PHOSPHATASE 70 U/L (46-116); ALT/SGPT 22 U/L (7.0-40); AST/SGOT 24 U/L (<34); BILIRUBIN,TOTAL 0.6 MG/DL (0.3-1.2); BLOOD UREA NITROGEN 7 MG/DL (9-23); CALCIUM LEVEL 8.7 MG/DL (8.5-10.1); CARBON DIOXIDE LEVEL 23 MMOL/L (20-31); CHLORIDE LEVEL 112 MMOL/L (98-107); CREATININE FOR GFR 0.67 MG/DL (0.55-1.30); GLOMERULAR FILTRATION RATE > 60.0 (>60); GLUCOSE, FASTING 85 MG/DL (60-100); MAGNESIUM LEVEL 1.7 MG/DL (1.8-2.4); POTASSIUM SERUM 4.3 MMOL/L (3.5-5.1); SODIUM LEVEL 142 MMOL/L (136-145); TOTAL PROTEIN 6.4 G/DL (5.7-8.2)
[2024-03-11] MEDS: MAGNESIUM OXIDE 400MG TAB (MAG-OX) PO ONE (21:21)
[2024-03-11 22:00] VITALS: BP 127/60; O2SAT 98
[2024-03-11] MEDS ORDERED: CEFD1CAP9 PO (23:00)
[2024-03-11] MEDS: ACETAMINOPHEN TAB 650MG DOSE (2X325MG) PO ONE (23:13)
== END 2024-03-11 23:14 | disposition home or self-care (01) ==
LOC: M ED 19:36
DX: S82.831A Other fracture of upper and lower end of right fibula, initial encounter for closed fracture (principal); Y04.1XXA Assault by human bite, initial encounter; Y04.8XXA Assault by other bodily force, initial encounter; Z79.52 Long term (current) use of systemic steroids; Z79.899 Other long term (current) drug therapy; Z79.2 Long term (current) use of antibiotics; Z23 Encounter for immunization; Y92.009 Unspecified place in unspecified non-institutional (private) residence as the place of occurrence of the external cause; Y93.9 Activity, unspecified; Y99.9 Unspecified external cause status

== ENCOUNTER 2024-10-19 16:23 | Inpatient (IN) | payer BC ==
[~2024-10-19] VITALS: Ht 160 cm; Wt 80.9 kg
[~2024-10-19 16:23] MED LIST changes: +CEFD1CAP9 PO; -CYCL5TAB PO; +CYCL5TAB4 PO
[2024-10-19 17:00] LABS: HEMATOCRIT 46.4 % (36.0-47.0); HEMOGLOBIN 15.4 g/dl (12.0-15.5); MEAN CORPUSCULAR HEMOGLOBIN 32.3 pg (27.0-33.0); MEAN CORPUSCULAR HGB CONC 33.2 g/dl (32.0-36.5); MEAN CORPUSCULAR VOLUME 97.3 fl (80.0-96.0); PLATELET COUNT, AUTOMATED 309 10^3/uL (150-450); RED BLOOD COUNT 4.77 10^6/uL (4.00-5.40); WHITE BLOOD COUNT 15.3 10^3/uL (4.0-10.0)
[2024-10-19 17:34] LABS: BARBITURATES URINE NEGATIVE (NEGATIVE); COCAINE METABOLITE URINE NEGATIVE (NEGATIVE); METHADONE URINE NEGATIVE (NEGATIVE); OPIATES URINE NEGATIVE (NEGATIVE); PHENCYCLIDINE URINE NEGATIVE (NEGATIVE)
[2024-10-19 17:37] LABS: AMPHETAMINES LEVEL URINE POSITIVE (NEGATIVE); BENZODIAZEPINES URINE POSITIVE (NEGATIVE); CANNABINOIDS URINE POSITIVE (NEGATIVE)
[2024-10-19 17:50] LABS: SALICYLATE LEVEL < 3.0 MG/DL (<30)
[2024-10-19 17:51] LABS: ALBUMIN 3.4 G/DL (3.2-5.2); ALKALINE PHOSPHATASE 73 U/L (35-104); ALT/SGPT 16 U/L (7.0-40); AST/SGOT 15 U/L (<34); BILIRUBIN,DIRECT < 0.1 MG/DL (<0.4); BILIRUBIN,TOTAL 0.3 MG/DL (0.3-1.2); BLOOD UREA NITROGEN 6 MG/DL (9-23); CALCIUM LEVEL 9.3 MG/DL (8.5-10.1); CARBON DIOXIDE LEVEL 24 MMOL/L (20-31); CHLORIDE LEVEL 108 MMOL/L (98-107); CREATININE FOR GFR 0.66 MG/DL (0.55-1.30); GLOMERULAR FILTRATION RATE > 60.0 (>58); GLUCOSE, FASTING 138 MG/DL (60-100); POTASSIUM SERUM 3.7 MMOL/L (3.5-5.1); SODIUM LEVEL 142 MMOL/L (136-145); TOTAL PROTEIN 6.5 G/DL (5.7-8.2)
[2024-10-19] MEDS ORDERED: LISD70CA PO (20:40)
[2024-10-19] MEDS ORDERED: HOME MED LIST COMPLETE! XX SCH (20:45)
[2024-10-19] MEDS: LORazepam 2 MG TAB PO ONE (21:39)
[2024-10-19] MEDS: NICOTINE 21MG/24HR 1 EA TRANSDERMAL TD ONE (21:40)
[2024-10-19] MEDS ORDERED: MAALOX 30 ML SUSP *UDC PO PRN (22:30)
[2024-10-19] MEDS ORDERED: IBUPROFEN 400MG TAB PO PRN (22:30)
[2024-10-19] MEDS ORDERED: MOM 30ML SUSPENSION UDC PO PRN (22:30)
[2024-10-19] MEDS ORDERED: ACETAMINOPHEN 325 MG TAB PO PRN (22:30)
[2024-10-19 23:44] VITALS: BP 146/98; TEMP 97.7; O2SAT 100
[2024-10-20 06:45] VITALS: BP 158/96; TEMP 97.2; O2SAT 99
[2024-10-20] MEDS: diphenhydrAMINE 25MG CAP PO PRN (08:24)
[2024-10-20] MEDS ORDERED: ALBUTEROL 90 MCG/ACT 8GM HFA INHALER INH PRN (11:00)
[2024-10-20 11:49] VITALS: BP 150/108
[2024-10-20] MEDS: amLODIPine 5 MG TAB PO SCH (11:51)
[2024-10-20] MEDS: ALPRAZolam 0.5 MG TAB PO PRN (11:52)
[2024-10-20] MEDS: PREGABALIN 75 MG CAP(LYRICA) PO SCH (11:52)
[2024-10-20] MEDS: amLODIPine 5 MG TAB PO ONE (14:24)
[2024-10-20 16:33] VITALS: BP 164/102; TEMP 98.1; O2SAT 95
[2024-10-20 16:44] VITALS: BP 158/98
[2024-10-20] MEDS: traZODone 50 MG TAB PO PRN (20:24)
[2024-10-20] MEDS: NICOTINE 21MG/24HR 1 EA TRANSDERMAL TD SCH (20:24)
[2024-10-20] MEDS: lamoTRIgine 100MG TAB PO SCH (20:25)
[2024-10-21 06:42] VITALS: BP 137/68; TEMP 97; O2SAT 98
[2024-10-21] MEDS ORDERED: LISDEXAMFETAMINE 70 MG PO SCH (09:00)
[2024-10-21] MEDS: ESCITALOPRAM OXALATE 10 MG TAB (LEXAPRO) PO SCH (09:48)
[2024-10-21] MEDS: LISDEXAMFETAMINE 70 MG PO SCH (16:43)
[2024-10-21 16:52] VITALS: BP 142/84; TEMP 98.2; O2SAT 97
[2024-10-22 06:33] VITALS: BP 150/81; TEMP 97.7; O2SAT 99
[2024-10-22 08:50] VITALS: BP 158/98
[2024-10-22] MEDS ORDERED: TRAZ-252 PO (09:23)
[2024-10-22] MEDS ORDERED: AMLO1TAB24 PO (09:23)
[2024-10-22] MEDS ORDERED: LEXA1TAB PO (09:23)
== END 2024-10-22 12:15 | disposition home or self-care (01) | DRG 754 ==
LOC: M ED 16:23 → EEVIPCON 22:30 → M ED INP 22:30 → M PSY 23:33
PROVIDERS: ADMIT Psychiatry & Neurology Psychiatry; ATTEND Psychiatry & Neurology Psychiatry
DX: F32.A Depression, unspecified (principal); R45.851 Suicidal ideations; F43.10 Post-traumatic stress disorder, unspecified; F90.9 Attention-deficit hyperactivity disorder, unspecified type; F60.3 Borderline personality disorder; F17.210 Nicotine dependence, cigarettes, uncomplicated; Z91.030 Bee allergy status; Z88.2 Allergy status to sulfonamides; Z79.899 Other long term (current) drug therapy; M79.7 Fibromyalgia; F41.9 Anxiety disorder, unspecified

== ENCOUNTER → 2025-08-12 | Outpatient (REF) | payer BC ==
[~2025-08-12] MED LIST changes: +AMLO1TAB24 PO; -IBUP-1022 PO; +IBUP600T42 PO; +LEXA1TAB PO; +LISD70CA PO; +METH54TA13 PO; -METH54TA5 PO; +PREG-35 PO; -PREG100CA PO; +TRAZ-252 PO
[2025-08-12 17:33] LABS: BASO # 0.0 10^3/uL (0.0-0.2); BASO % 0.3 % (0.0-1.0); EOS # 0.1 10^3/uL (0.0-0.5); EOS % 0.7 % (0.0-3.0); LYMPH # 3.2 10^3/uL (1.5-5.0); LYMPH % 23.3 % (24.0-44.0); MONO # 0.8 10^3/uL (0.0-0.8); MONO % 6.2 % (2.0-8.0); NEUTROPHILS # 9.4 10^3/uL (1.5-8.5); NEUTROPHILS % 69.1 % (36.0-66.0); PLATELET COUNT, AUTOMATED 266 10^3/uL (150-450)
[2025-08-12 17:45] LABS: ESTIMATED AVERAGE GLUCOSE 94.0 MG/DL (60-110)
[2025-08-12 18:05] LABS: ALT/SGPT 27 U/L (7.0-40); AST/SGOT 20 U/L (<34); CALCIUM LEVEL 8.9 MG/DL (8.5-10.1); CARBON DIOXIDE LEVEL 25 MMOL/L (20-31); CHLORIDE LEVEL 106 MMOL/L (98-107); CHOLESTEROL LEVEL 202 MG/DL (<200); CHOLESTEROL RISK RATIO 3.79 (<5); CREATININE FOR GFR 0.67 MG/DL (0.55-1.30); GLOMERULAR FILTRATION RATE > 90.0 (>58); LDL CHOLESTEROL 121.4 MG/DL (<100); NON-HDL-C 148.8 MG/DL; POTASSIUM SERUM 4.4 MMOL/L (3.5-5.1); SODIUM LEVEL 138 MMOL/L (136-145); TRIGLYCERIDES LEVEL 137 MG/DL (<150)
[2025-08-12 18:37] LABS: HIV 1&2 SCREEN NEGATIVE (NEGATIVE)
[2025-08-12 18:44] LABS: HEPATITIS C VIRUS ABY INDEX < 0.02 INDEX (<0.8)
== END ==
LOC: M LAB REF 16:26
PROVIDERS: ATTEND Nurse Practitioner Family
DX: E66.3 Overweight (principal); Z11.9 Encounter for screening for infectious and parasitic diseases, unspecified; R53.83 Other fatigue

== ENCOUNTER → 2025-09-15 | Outpatient (CLI) | payer BC | LOC: M WHC 12:47 | PROVIDERS: ATTEND Nurse Practitioner Family | DX: R92.8 Other abnormal and inconclusive findings on diagnostic imaging of breast (principal); D72.829 Elevated white blood cell count, unspecified; R92.333 Mammographic heterogeneous density, bilateral breasts; N63.21 Unspecified lump in the left breast, upper outer quadrant | CPT/HCPCS: 76642; 77066; 85025; G0279 ==

== ENCOUNTER → 2025-09-15 | Outpatient (REF) | payer BC ==
[2025-09-15 13:23] LABS: BASO # 0.1 10^3/uL (0.0-0.2); BASO % 0.5 % (0.0-1.0); EOS # 0.2 10^3/uL (0.0-0.5); EOS % 1.8 % (0.0-3.0); LYMPH # 3.3 10^3/uL (1.5-5.0); LYMPH % 29.3 % (24.0-44.0); MONO # 0.9 10^3/uL (0.0-0.8); MONO % 7.6 % (2.0-8.0); NEUTROPHILS # 6.9 10^3/uL (1.5-8.5); NEUTROPHILS % 60.6 % (36.0-66.0); PLATELET COUNT, AUTOMATED 303 10^3/uL (150-450)
== END ==
LOC: M LAB REF 11:58
PROVIDERS: ATTEND Nurse Practitioner Family
DX: D72.829 Elevated white blood cell count, unspecified (principal)